=== PATIENT | male | born 1960 | race Caucasian/White ===

== ENCOUNTER → 2017-12-05 | Outpatient (CLI) | payer OTHER ==
[~2017-12-05] MED LIST: CLAR10CA3 PO; DOCU1CAP39 PO; LATA0.002 EACH EYE; LISI10TA PO; METF1000 PO; METF500 PO; SHOWER/TUB CHAIR LG; SIMV10TA PO; SIMV40TA PO; THERM PO; XALA0.00 EACH EYE; Z.0.CPM; [UNRECOGNIZED DRUG - SUPPLY]
[2017-12-05 09:21] LABS: HEMATOCRIT 45.9 % (39.0-51.0); HEMOGLOBIN 15.3 GM/DL (13.0-17.0); MEAN CELL VOLUME 89.7 FL (80.0-100.0); MEAN CORPUSCULAR HEMOGLOBIN 29.9 PG (27.0-34.0); MEAN CORPUSCULAR HGB CONC 33.3 % (32.0-36.0); MEAN PLATELET VOLUME 8.4 FL (7.0-11.0); PLATELET COUNT 187 TH/MM3 (150-450); RED BLOOD COUNT 5.11 MIL/MM3 (4.50-5.90); RED CELL DISTRIBUTION WIDTH 12.9 % (11.6-17.2); WHITE BLOOD COUNT 9.5 TH/MM3 (4.0-11.0)
[2017-12-05 09:31] LABS: BILIRUBIN, URINE NEG (NEG); BLOOD, URINE TRACE (NEG); GLUCOSE,URINE NEG (NEG); KETONE, URINE NEG (NEG); MUCUS URINE FEW /lpf (OCC); NITRITE,URINE NEG (NEG); PH, URINE 5.5 (5.0-8.5); URINE COLOR YELLOW (YELLW/STRAW); URINE LEUKOCYTE ESTERASE NEG (NEG)
[2017-12-05 09:47] LABS: PROTHROMBIN TIME - PATIENT 9.8 SEC (9.8-11.6)
[2017-12-05 09:48] LABS: AST (GOT) 52 U/L (15-37); BICARBONATE 28.4 MEQ/L (21.0-32.0); BLOOD UREA NITROGEN 14 MG/DL (7-18); CALCIUM 9.1 MG/DL (8.5-10.1); CHLORIDE 101 MEQ/L (98-107); CREATININE 0.98 MG/DL (0.60-1.30); GLOMERULAR FILTRATION RATE 79 ML/MIN (>89); GLUCOSE,FASTING 116 MG/DL (74-99); SODIUM (NA) 136 MEQ/L (136-145)
[2017-12-05 09:56] LABS: ALKALINE PHOSPHATASE 110 U/L (45-117); ALT (GPT) 78 U/L (12-78); TOTAL BILIRUBIN ADULT 0.5 MG/DL (0.2-1.0); TOTAL PROTEIN 8.3 GM/DL (6.4-8.2)
--- NOTE | 2017-12-05 15:21 | EKG ---
Date Performed: 12/05/2017 Time Performed: 09:08:46 PTAGE: 57 years EKG: Sinus rhythm Leftward axis Borderline ECG PREVIOUS TRACING : 07/13/2015 10.18 Compared to prior tracing no significant change DOCTOR: Rashard Tobar Interpretating Date/Time 12/05/2017 15:19:45
== END ==
LOC: CPRE 08:36
PROVIDERS: ATTEND Surgery
DX: Z01.810 Encounter for preprocedural cardiovascular examination (principal); Z01.812 Encounter for preprocedural laboratory examination; M25.562 Pain in left knee
CPT/HCPCS: 36415; 80053; 81001; 85027; 85610; 85730; 93005

== ENCOUNTER 2017-12-11 06:05 | Inpatient (IN) | payer OTHER ==
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
[~2017-12-11] VITALS: Ht 177.8 cm; Wt 105.4 kg
[~2017-12-11 06:05] MED LIST changes: -DOCU1CAP39 PO; -METF500 PO; -SHOWER/TUB CHAIR LG; -SIMV40TA PO; -THERM PO; -XALA0.00 EACH EYE; -Z.0.CPM
[2017-12-11] MEDS: CHLORHEXIDINE GLUCONATE 2 % 1 PACK (2 CLOTHS) TOPICAL PRN ×2 (06:35→06:45)
[2017-12-11] MEDS ORDERED: SODIUM CHLORID 0.9% 500 ML IV PRN (06:45)
[2017-12-11] MEDS ORDERED: METOPROLOL TARTRATE 25 MG TAB PO PRN (06:45)
[2017-12-11] MEDS: LACTATED RINGER'S 1000 ML IV PRN ×2 (06:50→07:00)
[2017-12-11] MEDS ORDERED: ceFAZolin INJ 1,000 MG VIAL ONE (06:52)
[2017-12-11] MEDS ORDERED: TOBRAMYCIN 1200 MG VIAL (for ortho/sterile core) ONE (06:53)
[2017-12-11] MEDS ORDERED: EPINEPHrine HCL PF/SF (1:1000) 1 MG/ML AMP I-OCULAR ONE (06:57)
[2017-12-11] MEDS ORDERED: BUPIVACAINE HCL PF 0.5% 30 ML VIAL ONE (06:57)
[2017-12-11] MEDS ORDERED: DEXAMETHASONE SOD PHOS PF 10 MG/ML VIAL ONE (06:57)
[2017-12-11] MEDS ORDERED: SODIUM CHLORIDE 0.9% 20 ML VIAL ONE (06:57)
[2017-12-11] MEDS: POVIDONE IODINE 5% (ANTISEPSIS KIT) 4 APPLICATIONS EACH NARE PRN (07:00)
[2017-12-11] MEDS ORDERED: CHLORHEXIDINE GLUCONATE 4% SOLN 120 ML BTL TOPICAL SCH (07:00)
[2017-12-11] MEDS ORDERED: SIMV40TA PO (07:07)
[2017-12-11] MEDS ORDERED: PROPOFOL 500 MG/50 ML INJ 0 ML ONE (07:12)
[2017-12-11] MEDS ORDERED: VANCOMYCIN HCL 1000 MG VIAL ONE (07:40)
[2017-12-11] MEDS ORDERED: NALOXONE HCL 0.4 MG/ML AMP IV PUSH PRN (07:45)
[2017-12-11] MEDS ORDERED: diphenhydrAMINE HCL 50 MG/ML VIAL IV PUSH PRN (07:45)
[2017-12-11] MEDS ORDERED: ACETAMINOPHEN/HYDROcodone 325 MG/7.5 MG TAB PO PRN ×2 (07:45)
[2017-12-11] MEDS ORDERED: HYDROmorphone HCL PF 2 MG/ML VIAL IV PUSH PRN (07:45)
[2017-12-11] MEDS ORDERED: ONDANSETRON HCL 4 MG/2 ML VIAL IVP PRN (07:45)
[2017-12-11] MEDS ORDERED: LORATADINE 10 MG TAB PO PRN (07:45)
[2017-12-11] MEDS ORDERED: TRANEXAMIC ACID INJ 0 MG in SODIUM CHLORIDE 0.9% INJ 100 ML IV SCH (07:45)
[2017-12-11] MEDS ORDERED: CPMMACHINE (07:50)
[2017-12-11] MEDS: TRANEXAMIC ACID IV SCH ×2 (08:05→08:52)
[2017-12-11] MEDS: SODIUM CHLORIDE 0.9% IV SCH ×2 (08:05→08:52)
[2017-12-11] MEDS: HYDROCHLOROTHIAZIDE 25 MG TAB PO SCH (09:00)
[2017-12-11] MEDS ORDERED: TRANEXAMIC ACID IV SCH (11:00)
[2017-12-11] MEDS ORDERED: SODIUM CHLORIDE 0.9% IV SCH (11:00)
--- NOTE | 2017-12-11 11:11 | MP ---
cc: Jason MOSQUEDA M.D. 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 SURGERY PERFORMED Revision left total knee arthroplasty. SURGEON Dr. Mosqueda. BRAKE HOLDER REBEKA Mercado. ANESTHESIA General intubation and block. PROCEDURE The patient was brought to the operating room, placed on the operating table in supine position. After successful induction of anesthesia the patient's left knee, thigh and leg were prepped and draped in the usual manner. An anteromedial incision was then made through the old incision nine inches in length, carried down through subcutaneous tissue, dissecting the fascia and making a medial parapatellar incision through the deep fascia into the joint. Serosanguineous fluid was removed and sent to the lab for stat. Gram stain, culture and sensitivity. Gram stain revealed a few red cells, no bacteria seen. The knee was then debrided of heavy scarring which was holding the patella laterally. The knee was able to be flexed after this. Prior to release of the scar tissue the patient had range of motion from just about full extension to only 90 degrees of flexion. By the end of the case he had full extension and flexion to 125 degrees. The patella was then inspected by reflecting it laterally and inverting it, and found to be totally covered by adhesions and tissue which was then removed. The patella was found to be loose and easily removed. A new cut was then made for the patella to smooth out the bone. Using the three-hole jig for a size 37 drill holes were made and the trial fit snugly. A lateral retinacular release was also performed to free up some more scar tissue lateral to it and allow the patella to track in its normal trochlear groove tracking. Scar tissue was removed around the femur and the tibia. The femur was found to be totally intact with no loosening. The tibial insert was found to have some wear and removed. The rest of the tibial component was found to be intact with no loosening. A trial 12 was then inserted after removal of all scar tissue from in back of the knee and its sides medial and lateral sides and anterior. A size 12 insert was found to track better than a 10 with full range of motion and no instability. All trials were then removed. The wound was irrigated copiously with antibiotic solution. The tourniquet was deflated, at this point being 61 minutes at 300 mmHg pressure, and meticulous hemostasis achieved. The patella was then cemented with one batch of Palacos cement and the size 12 tibia was then inserted as well and locked into place with a clip. Full range of motion after the cement hardened was noted with absolutely no instability and no catching of any scar tissue any longer. The patella tracked extremely well in the trochlear groove. The wound was irrigated copiously again with antibiotic solution and meticulous hemostasis achieved. The deep fascia was approximated with running #2 Quill. The subcutaneous tissue was approximated using interrupted running 2-0 and 3-0 Monocryl suture. Steri-Strips, sterile dressing and a knee immobilizer were applied. No drain was utilized. The estimated blood loss was 100 cc. Sponge and suture count were correct. The patient tolerated the procedure well and left the operating room in satisfactory condition. REBEKA Mercado was present during the entire procedure to include patient positioning and the procedure. The medical necessity of a nurse practitioner first press operator was indicated in this case due to the surgical complexity of the case itself. During the surgical case the surgical specialist was working the back table while my surgical garment assembler REBEKA was directly assisting me. JMD GLADYS Long/DOROTHY /10:38 AM /10:52 AM
[2017-12-11] MEDS ORDERED: DO NOT ADM ANY ANTICOAGULANT DRUGS PRN (11:12)
[2017-12-11] MEDS ORDERED: ACETAMINOPHEN 1000 MG/100 ML 100 ML IV ONE (11:18)
[2017-12-11] MEDS ORDERED: MIDAZOLAM HCL 2 MG/2 ML VIAL ONE (11:18)
[2017-12-11] MEDS: LACTATED RINGER'S 1000 ML INJ 1,000 ML IV SCH ×2 (11:30→22:39)
--- NOTE | 2017-12-11 11:41 | RADRPT ---
EXAM DATE/TIME: 12/11/2017 09:39 [facility] COMPARISON: KNEE LEFT LTD (1 OR 2VWS), May 13, 2016, 14:36. INDICATIONS : ORIF of the left knee. MEDICAL HISTORY : Unobtainable. SURGICAL HISTORY : Unobtainable. ENCOUNTER: Initial ACUITY: 1 day PAIN SCORE: Non-responsive. LOCATION: Left knee. FINDINGS: Single intraoperative sunrise view was obtained. The patella appears well situated. Examination is ve ry limited. CONCLUSION: 1. Intraoperative sunrise view demonstrate the patella to be well situated over the arthroplasty. Mario Acosta MD on December 11, 2017 at 11:37 Board Certified Radiologist. This report was verified electronically.
--- NOTE | 2017-12-11 11:42 | RADRPT ---
EXAM DATE/TIME: 12/11/2017 11:26 [facility] COMPARISON: KNEE LEFT LTD (1 OR 2VWS), May 13, 2016, 14:36. KNEE LEFT LTD (1 OR 2VWS), December 11, 2017, 9:39. INDICATIONS : Post op left total knee. MEDICAL HISTORY : None. SURGICAL HISTORY : None. ENCOUNTER: Initial ACUITY: 1 day PAIN SCORE: Non-responsive. LOCATION: Left Knee FINDINGS: Total knee prosthesis revision appears well seated. CONCLUSION: Total knee prosthesis revision well-seated Riley Mendiola MD on December 11, 2017 at 11:38 Board Certified Radiologist. This report was verified electronically.
[2017-12-11] MEDS ORDERED: Post-op Orders (for Pharmacy) XX ONE (11:45)
[2017-12-11] MEDS ORDERED: DEXAMETHASONE SOD PHOS 4 MG/ML VIAL IV ONE (12:00)
[2017-12-11] MEDS ORDERED: ePHEDrine/NS 25 MG/5 ML SYRINGE IV ONE (12:00)
[2017-12-11] MEDS ORDERED: ROCURONIUM INJ 50 MG/5 ML SYRINGE IV PUSH ONE (12:00)
[2017-12-11] MEDS ORDERED: LIDOCAINE HCL 1% PF 5 ML SYRINGE OTHER ONE (12:00)
[2017-12-11] MEDS ORDERED: PHENYLEPH/NS 1000 MCG/10 ML SYR IV ONE (12:00)
[2017-12-11] MEDS ORDERED: ONDANSETRON HCL 4 MG/2 ML VIAL IV PUSH ONE (12:00)
[2017-12-11] MEDS ORDERED: NEOSTIGMINE 5 MG/5 ML SYRINGE IV PUSH ONE (12:00)
[2017-12-11] MEDS ORDERED: GLYCOPYRROLATE 1 MG/5 ML SYRINGE IV PUSH ONE (12:00)
[2017-12-11] MEDS ORDERED: ceFAZolin INJ 1,000 MG VIAL IV ONE (12:00)
[2017-12-11] MEDS ORDERED: LACTATED RINGER'S 1000 ML INJ 1,000 ML IV ONE (12:00)
[2017-12-11] MEDS ORDERED: PROPOFOL 200 MG/20 ML AMP IV ONE (12:00)
--- NOTE | 2017-12-11 15:45 | HHI.PR ---
Immediate Post Op Note Procedure Date: Dec 11, 2017 Pre Op Diagnosis: Failed left total knee arthroplasty Post Op Diagnosis: Failed left total knee arthroplasty Surgeon: Doris Mosqueda MD Sales Producer(s): Jason Mosqueda MD Procedure: Revision of Left Total Knee Arthroplasty Complications: none Specimen(s) removed: Left knee Fluid Estimated blood loss: 100 cc Anesthesia: General Drains: None IVF Urinary Output (mLs): 0 (no sargent) Tourniquet time (min at mmHg) 61 mins at 300 mm Hg Patient to: PACU Patient Condition: Good Implant/Devices: SEE IMPLANT LOG (if applicable) Date/Time of Procedure: SEE SURGICAL CARE RECORD Symone Arzate Dec 11, 2017 15:45
[2017-12-11] MEDS: ACETAMINOPHEN 325 MG TAB PO PRN (17:35)
[2017-12-11] MEDS: metFORMIN HCL 500 MG TAB PO SCH (17:35)
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
[2017-12-11 20:00] VITALS: BP 122/59; PULSE 99; RESP 16; TEMP 97.8; O2SAT 93
[2017-12-11] MEDS ORDERED: TEMAZEPAM 15 MG CAP PO PRN (21:00)
[2017-12-11] MEDS ORDERED: NON-FORMULARY DRUG (Lisinopril-Hctz 1 TAB) PO SCH (21:00)
[2017-12-11] MEDS: LATANOPROST 0.005% OPHT SOLN 2.5 ML BTL EACH EYE SCH (22:33)
[2017-12-11] MEDS: PRAVASTATIN SOD 80 MG TAB PO SCH (22:33)
[2017-12-12] VITALS (8 sets, daily range): BP systolic 96–126; BP diastolic 55–65; PULSE 81–96; RESP 15–20; TEMP 96.9–98.7; O2SAT 92–97
[2017-12-12] MEDS: APIXABAN 2.5 MG TABLET PO SCH ×2 (08:55→21:05)
[2017-12-12] MEDS: HYDROCHLOROTHIAZIDE 25 MG TAB PO SCH ×2 (08:56→08:59)
[2017-12-12] MEDS: LISINOPRIL 10 MG TAB PO SCH ×2 (08:56→09:00)
[2017-12-12] MEDS: ACETAMINOPHEN 325 MG TAB PO PRN (08:57)
[2017-12-12] MEDS: metFORMIN HCL 500 MG TAB PO SCH ×2 (08:57→17:08)
[2017-12-12 09:51] LABS: HEMATOCRIT 36.1 % (39.0-51.0); HEMOGLOBIN 12.1 GM/DL (13.0-17.0)
[2017-12-12 10:20] LABS: CHOLESTEROL 125 MG/DL (120-200); TRIGLYCERIDES 115 MG/DL (42-150)
[2017-12-12 10:24] LABS: CHOLESTEROL/ HDL RATIO 2.72 RATIO; HDL CHOLESTEROL 45.8 MG/DL (40.0-60.0); LDL CHOLESTEROL 56 MG/DL (0-99)
--- NOTE | 2017-12-12 11:10 | PD.ORT.PN ---
Subjective Subjective Remarks Pt somewhat painful today. Objective Vitals Vital Signs Date Time Temp Pulse Resp B/P (MAP) Pulse Ox O2 Delivery O2 Flow Rate FiO2 12/12/17 08:00 96.9 82 20 122/56 (78) 95 12/12/17 04:00 97.8 81 15 124/65 (84) 95 12/12/17 00:00 98.7 96 15 109/56 (73) 92 12/11/17 20:00 97.8 99 16 122/59 (80) 93 12/11/17 16:50 88 18 123/82 (96) 96 Nasal Cannula 2 12/11/17 16:00 91 18 112/59 (76) 95 Nasal Cannula 2 12/11/17 15:00 85 18 118/57 (77) 96 Nasal Cannula 2 12/11/17 14:00 93 18 115/57 (76) 97 Nasal Cannula 2 12/11/17 13:00 89 18 123/56 (78) 94 Nasal Cannula 2 12/11/17 12:00 86 18 123/58 (79) 94 Nasal Cannula 4 12/11/17 11:45 86 18 122/60 (80) 92 Nasal Cannula 4 12/11/17 11:30 90 18 117/59 (78) 92 Nasal Cannula 4 12/11/17 11:11 98.6 93 18 138/61 (86) 90 Nasal Cannula 4 I/O 12/11/17 12/11/17 12/11/17 12/12/17 12/12/17 12/12/17 07:00 15:00 23:00 07:00 15:00 23:00 Intake Total 1500 ml 300 ml 1200 ml Output Total 100 ml 900 ml Balance 1400 ml 300 ml 300 ml Intake Oral 200 ml 1200 ml IV Total 100 ml Other 1500 ml Output Urine Total 900 ml Estimated Blood Loss 100 ml # Voids 1 Result Diagram: 12/12/17 0916 Imaging Last Impressions Knee X-Ray 12/11/17 0744 Signed Impressions: Service Date/Time: Monday, December 11, 2017 11:26 - CONCLUSION: Total knee prosthesis revision well-seated Riley Mendiola MD Objective Remarks Sitting up in chair today. NV intact. No calf tenderness. Assessment & Plan Ortho Post Op Day #: 1 Problem List: Assessment and Plan Cont PT and daily wound care. Ultram for pain control. Rehab soon. Jason Mosqueda MD Dec 12, 2017 11:10
[2017-12-12 12:01] LABS: HEPATITIS B CORE AB IGM NEGATIVE (NEGATIVE); HEPATITIS B SURFACE ANTIGEN NEGATIVE (NEGATIVE); HEPATITIS C AB IgG NEGATIVE (NEGATIVE)
[2017-12-12 12:30] LABS: HEPATITIS A AB IGM NEGATIVE (NEGATIVE)
--- NOTE | 2017-12-12 16:23 | HHI.PR ---
Subjective Remarks patient c/o pain, controlled with medications. afebrile. Objective Vitals Vital Signs Date Time Temp Pulse Resp B/P (MAP) Pulse Ox O2 Delivery O2 Flow Rate FiO2 12/12/17 12:00 97.0 84 20 125/65 (85) 94 12/12/17 08:00 96.9 82 20 122/56 (78) 95 12/12/17 04:00 97.8 81 15 124/65 (84) 95 12/12/17 00:00 98.7 96 15 109/56 (73) 92 12/11/17 20:00 97.8 99 16 122/59 (80) 93 12/11/17 16:50 88 18 123/82 (96) 96 Nasal Cannula 2 I/O 12/11/17 12/11/17 12/11/17 12/12/17 12/12/17 12/12/17 06:59 14:59 22:59 06:59 14:59 22:59 Intake Total 1500 ml 300 ml 1200 ml Output Total 100 ml 900 ml Balance 1400 ml 300 ml 300 ml Intake Oral 200 ml 1200 ml IV Total 100 ml Other 1500 ml Output Urine Total 900 ml Estimated Blood Loss 100 ml # Voids 1 Result Diagram: 12/12/17 0916 Imaging Last Impressions Knee X-Ray 12/11/17 0744 Signed Impressions: Service Date/Time: Monday, December 11, 2017 11:26 - CONCLUSION: Total knee prosthesis revision well-seated Riley Mendiola MD Objective Remarks GENERAL: This is a well-nourished, well-developed patient, in no apparent distress. SKIN: No rashes, ecchymoses or lesions. Cool and dry. HEAD: Atraumatic. Normocephalic. No temporal or scalp tenderness. EYES: Pupils equal round and reactive. Extraocular motions intact. No scleral icterus. No injection or drainage. ENT: Nose without bleeding, purulent drainage or septal hematoma. Throat without erythema, tonsillar hypertrophy or exudate. Uvula midline. Airway patent. NECK: Trachea midline. No JVD or lymphadenopathy. Supple, nontender, no meningeal signs. CARDIOVASCULAR: Regular rate and rhythm without murmurs, gallops, or rubs. RESPIRATORY: Clear to auscultation. Breath sounds equal bilaterally. No wheezes , rales, or rhonchi. GASTROINTESTINAL: Abdomen soft, non-tender, nondistended. No hepato-splenomegaly , or palpable masses. No guarding. MUSCULOSKELETAL: Extremities without clubbing, cyanosis, or edema. No joint tenderness, effusion, or edema noted. No calf tenderness. Negative Homans sign bilaterally. Left knee is moderately swollen and wrapped with an Harvey bandage. NEUROLOGICAL: Awake and alert. Cranial nerves II through XII intact. Motor and sensory grossly within normal limits. Five out of 5 muscle strength in all muscle groups. Normal speech. Medications and IVs Current Medications Medications (Trade) Dose Ordered Sig/Dong Route Start Time Stop Time Status Last Admin (Lopressor) 25 mg IT SYSTEMS ANALYST PRN PO 12/11/17 06:45 12/14/17 06:44 (Betadine 5% Antisepsis Kit) 1 applic IT SYSTEMS ANALYST PRN EACH NARE 12/11/17 06:45 12/14/17 06:44 12/11/17 07:00 (Chlorhexidine 2% Cloth) 3 pack IT SYSTEMS ANALYST PRN TOPICAL 12/11/17 06:45 12/14/17 06:44 12/11/17 06:35 (Hibiclens 4% Top Soln) 1 applic ONCE TOPICAL 12/11/17 07:00 12/14/17 06:59 12/11/17 07:15 (Xalatan 0.005% Opth Soln) 1 drop HS EACH EYE 12/11/17 21:00 12/11/17 22:33 (Claritin) 10 mg DAILY PRN PO 12/11/17 07:45 (Glucophage) 1,000 mg BIDPC PO 12/11/17 09:00 12/12/17 08:57 (Pravachol) 80 mg HS PO 12/11/17 21:00 12/11/17 22:33 Lactated Ringer's 1,000 ml @ 80 mls/hr [id number] IV 12/11/17 07:44 12/11/17 22:39 (Dilaudid Pf Inj) 1 mg Q3H PRN IV PUSH 12/11/17 07:45 (Tylenol) 650 mg Q6H PRN PO 12/11/17 07:45 12/12/17 08:57 (Theragran M Tab) 1 tab BID PO 12/12/17 21:00 02/10/18 20:59 (Zofran Inj) 4 mg Q6H PRN IVP 12/11/17 07:45 12/11/17 17:33 (Colace) 100 mg BID PO 12/12/17 21:00 (Restoril) 15 mg HS PRN PO 12/11/17 21:00 (Bacitracin Oint Packet) 0.9 gm UNSCH X1 PRN TOP 12/13/17 10:15 12/15/17 10:14 (Narcan Inj) 0.4 mg UNSCH PRN IV PUSH 12/11/17 07:45 (Benadryl Inj) 25 mg Q6H PRN IV PUSH 12/11/17 07:45 (Eliquis) 2.5 mg BID PO 12/12/17 08:00 12/12/17 08:55 (Prinivil) 10 mg DAILY PO 12/11/17 09:00 12/12/17 08:56 (Hydrodiuril) 12.5 mg DAILY PO 12/11/17 09:00 12/11/17 09:00 (Ultram) 50 mg Q4H PRN PO 12/12/17 14:00 A/P Problem List: (1) Status post revision of total replacement of left knee ICD Code: Z96.652 - Presence of left artificial knee joint Plan: Management as per orthopedic surgery. Pain control as per orthopedic surgery. (2) Hypertension ICD Code: I10 - Hypertension Status: Chronic Plan: Blood pressure seems to be stable. Continue home antihypertensive medications. The patient is currently on lisinopril HCTZ. Continue to monitor vital signs. (3) DM (diabetes mellitus) ICD Code: E11.9 - Type 2 diabetes mellitus without complications Status: Chronic Plan: Continue metformin. Check hemoglobin A1c if not previously done. 12/12 hemoglobin a1c pending. (4) Transaminitis ICD Code: R74.0 - Nonspecific elevation of levels of transaminase and lactic acid dehydrogenase [LDH] Status: Chronic Plan: Upon review of previous lab results. Transaminitis is a chronic problem and AST and ALP are slightly improved. However there is no previous tests for hepatitis, so I will order hepatitis profile. Patient states that he has had imaging at the [facility]. 12/12 hepatitis profile pending. (5) Hyperlipidemia ICD Code: E78.5 - Hyperlipidemia, unspecified Plan: Continue statin. Check fasting lipid profile. 12/12 fasting lipid profile shows stable cholesterol. Patient with a total cholesterol 125 and LDL cholesterol 56. Assessment and Plan DVT prophylaxis: SCDs, on apixaban. Discharge Planning Discharge as per primary team. Problem Qualifiers (1) Hypertension: Qualified Codes: I10 - Essential (primary) hypertension (2) DM (diabetes mellitus): Qualified Codes: E11.9 - Type 2 diabetes mellitus without complications (3) Hyperlipidemia: Qualified Codes: E78.5 - Hyperlipidemia, unspecified Les Chavez MD Dec 12, 2017 16:23
[2017-12-12 18:11] LABS: HEMOGLOBIN A1C 6.4 % (4.3-6.0)
[2017-12-12] MEDS: DOCUSATE SODIUM 100 MG CAP PO SCH (21:04)
[2017-12-12] MEDS: PRAVASTATIN SOD 80 MG TAB PO SCH (21:04)
[2017-12-12] MEDS: traMADol HCL 50 MG TAB PO PRN (21:04)
[2017-12-12] MEDS: MULTIVITAMINS/MINERALS THERAPEUTIC TAB PO SCH (21:04)
[2017-12-12] MEDS: LACTATED RINGER'S 1000 ML INJ 1,000 ML IV SCH (21:05)
[2017-12-12] MEDS: LATANOPROST 0.005% OPHT SOLN 2.5 ML BTL EACH EYE SCH (21:05)
[2017-12-13] VITALS (7 sets, daily range): BP systolic 95–139; BP diastolic 52–73; PULSE 76–102; RESP 16–18; TEMP 96.4–98.9; O2SAT 94–98
[2017-12-13] MEDS: traMADol HCL 50 MG TAB PO PRN ×3 (07:50→21:25)
--- NOTE | 2017-12-13 07:54 | PD.ORT.PN ---
Subjective Subjective Remarks Pt less painful today. Objective Vitals Vital Signs Date Time Temp Pulse Resp B/P (MAP) Pulse Ox O2 Delivery O2 Flow Rate FiO2 12/13/17 04:30 98.9 76 16 95/52 (66) 94 12/12/17 23:35 98.3 86 16 96/55 (69) 94 12/12/17 20:00 98.7 93 18 126/60 (82) 97 12/12/17 18:00 94 Nasal Cannula 2.00 12/12/17 16:00 97.7 86 20 124/59 (80) 96 12/12/17 12:00 97.0 84 20 125/65 (85) 94 12/12/17 08:00 96.9 82 20 122/56 (78) 95 I/O 12/12/17 12/12/17 12/12/17 12/13/17 12/13/17 12/13/17 07:00 15:00 23:00 07:00 15:00 23:00 Intake Total 1200 ml 600 ml 480 ml 120 ml Output Total 900 ml 350 ml 200 ml Balance 300 ml 600 ml 130 ml -80 ml Intake Oral 1200 ml 600 ml 480 ml 120 ml Output Urine Total 900 ml 350 ml 200 ml # Voids 5 # Bowel Movements 0 0 Result Diagram: 12/12/17 0916 Imaging Last Impressions Knee X-Ray 12/11/17 0744 Signed Impressions: Service Date/Time: Monday, December 11, 2017 11:26 - CONCLUSION: Total knee prosthesis revision well-seated Riley Mendiola MD Objective Remarks In bed today. NV intact. No calf tenderness. Assessment & Plan Ortho Post Op Day #: 2 Problem List: Assessment and Plan Cont PT and daily wound care. Ultram for pain control. Rehab soon. Jason Mosqueda MD Dec 13, 2017 07:54
--- NOTE | 2017-12-13 08:10 | HHI.DS ---
Discharge Summary Admission Date Dec 11, 2017 at 06:05 Discharge Date: Dec 13, 2017 Admitting Diagnosis Failed left total knee arthroplasty Diagnosis: (1) Status post revision of total replacement of left knee Diagnosis: Principal ICD Codes: Z96.652 - Presence of left artificial knee joint Brief History This is a 57 year old male patient CBC/BMP: 12/12/17 0916 Significant Findings Laboratory Tests Test 12/12/17 09:16 Hemoglobin 12.1 GM/DL (13.0-17.0) Hematocrit 36.1 % (39.0-51.0) Hemoglobin A1c 6.4 % (4.3-6.0) PE at Discharge In bed today. NV intact. No calf tenderness. Hospital Course Patient underwent a revision of his left total knee arthroplasty on day of admission. He received a course of prophylactic IV antibiotics and within 23 hours started anticoagulation therapy. He continued to improve remaining afebrile vital signs stable and was discharged to rehabilitation center on second postoperative day in good condition for continuation of care. Pt Condition on Discharge: Good Discharge Disposition: Rehab Inpatient Discharge Instructions Diet Instructions: Diabetic Diet Activities You Can Perform: Full Weight Bearing, Shower Only-No Bath Activities to Avoid: Bathing, Driving Jason Mosqueda MD Dec 13, 2017 08:10
[2017-12-13] MEDS: metFORMIN HCL 500 MG TAB PO SCH ×2 (09:04→17:36)
[2017-12-13] MEDS: APIXABAN 2.5 MG TABLET PO SCH ×2 (09:04→21:25)
[2017-12-13] MEDS: DOCUSATE SODIUM 100 MG CAP PO SCH ×2 (09:04→21:25)
[2017-12-13] MEDS: MULTIVITAMINS/MINERALS THERAPEUTIC TAB PO SCH ×2 (09:04→21:25)
[2017-12-13] MEDS: HYDROCHLOROTHIAZIDE 25 MG TAB PO SCH (09:05)
[2017-12-13] MEDS: LISINOPRIL 10 MG TAB PO SCH (09:05)
[2017-12-13] MEDS: LACTATED RINGER'S 1000 ML INJ 1,000 ML IV SCH ×2 (09:06→22:10)
[2017-12-13] MEDS ORDERED: BACITRACIN OINT 0.9 GM PKT TOP PRN (10:15)
[2017-12-13 11:57] LABS: HEMOGLOBIN 12.4 GM/DL (13.0-17.0)
--- NOTE | 2017-12-13 16:32 | HHI.PR ---
Subjective Remarks Deferred entry - patient seen at 10:30 am. pain is controlled, denies fevers or chills. Objective Vitals Vital Signs Date Time Temp Pulse Resp B/P (MAP) Pulse Ox O2 Delivery O2 Flow Rate FiO2 12/13/17 15:40 17 12/13/17 12:00 98.2 93 18 116/62 (80) 97 12/13/17 10:45 95 Nasal Cannula 2.00 12/13/17 08:00 98.7 89 18 131/73 (92) 95 12/13/17 04:30 98.9 76 16 95/52 (66) 94 12/12/17 23:35 98.3 86 16 96/55 (69) 94 12/12/17 20:00 98.7 93 18 126/60 (82) 97 12/12/17 18:00 94 Nasal Cannula 2.00 I/O 12/12/17 12/12/17 12/12/17 12/13/17 12/13/17 12/13/17 06:59 14:59 22:59 06:59 14:59 22:59 Intake Total 1200 ml 600 ml 480 ml 120 ml Output Total 900 ml 350 ml 200 ml Balance 300 ml 600 ml 130 ml -80 ml Intake Oral 1200 ml 600 ml 480 ml 120 ml Output Urine Total 900 ml 350 ml 200 ml # Voids 5 # Bowel Movements 0 0 Result Diagram: 12/13/17 1133 Imaging Last Impressions Knee X-Ray 12/11/17 0744 Signed Impressions: Service Date/Time: Monday, December 11, 2017 11:26 - CONCLUSION: Total knee prosthesis revision well-seated Riley Mendiola MD Objective Remarks GENERAL: This is a well-nourished, well-developed patient, in no apparent distress. SKIN: No rashes, ecchymoses or lesions. Cool and dry. HEAD: Atraumatic. Normocephalic. No temporal or scalp tenderness. EYES: Pupils equal round and reactive. Extraocular motions intact. No scleral icterus. No injection or drainage. ENT: Nose without bleeding, purulent drainage or septal hematoma. Throat without erythema, tonsillar hypertrophy or exudate. Uvula midline. Airway patent. NECK: Trachea midline. No JVD or lymphadenopathy. Supple, nontender, no meningeal signs. CARDIOVASCULAR: Regular rate and rhythm without murmurs, gallops, or rubs. RESPIRATORY: Clear to auscultation. Breath sounds equal bilaterally. No wheezes , rales, or rhonchi. GASTROINTESTINAL: Abdomen soft, non-tender, nondistended. No hepato-splenomegaly , or palpable masses. No guarding. MUSCULOSKELETAL: Extremities without clubbing, cyanosis, or edema. No joint tenderness, effusion, or edema noted. No calf tenderness. Negative Homans sign bilaterally. Left knee is moderately swollen and wrapped with an Harvey bandage. NEUROLOGICAL: Awake and alert. Cranial nerves II through XII intact. Motor and sensory grossly within normal limits. Five out of 5 muscle strength in all muscle groups. Normal speech. Medications and IVs Current Medications Medications (Trade) Dose Ordered Sig/Dong Route Start Time Stop Time Status Last Admin (Lopressor) 25 mg REEL WINDER PRN PO 12/11/17 06:45 12/14/17 06:44 (Betadine 5% Antisepsis Kit) 1 applic REEL WINDER PRN EACH NARE 12/11/17 06:45 12/14/17 06:44 12/11/17 07:00 (Chlorhexidine 2% Cloth) 3 pack REEL WINDER PRN TOPICAL 12/11/17 06:45 12/14/17 06:44 12/11/17 06:35 (Hibiclens 4% Top Soln) 1 applic ONCE TOPICAL 12/11/17 07:00 12/14/17 06:59 12/11/17 07:15 (Xalatan 0.005% Opth Soln) 1 drop HS EACH EYE 12/11/17 21:00 12/12/17 21:05 (Claritin) 10 mg DAILY PRN PO 12/11/17 07:45 (Glucophage) 1,000 mg BIDPC PO 12/11/17 09:00 12/13/17 09:04 (Pravachol) 80 mg HS PO 12/11/17 21:00 12/12/17 21:04 Lactated Ringer's 1,000 ml @ 80 mls/hr [id number] IV 12/11/17 07:44 12/11/17 22:39 (Dilaudid Pf Inj) 1 mg Q3H PRN IV PUSH 12/11/17 07:45 (Tylenol) 650 mg Q6H PRN PO 12/11/17 07:45 12/12/17 08:57 (Theragran M Tab) 1 tab BID PO 12/12/17 21:00 02/10/18 20:59 12/13/17 09:04 (Zofran Inj) 4 mg Q6H PRN IVP 12/11/17 07:45 12/11/17 17:33 (Colace) 100 mg BID PO 12/12/17 21:00 12/13/17 09:04 (Restoril) 15 mg HS PRN PO 12/11/17 21:00 (Bacitracin Oint Packet) 0.9 gm UNSCH X1 PRN TOP 12/13/17 10:15 12/15/17 10:14 (Narcan Inj) 0.4 mg UNSCH PRN IV PUSH 12/11/17 07:45 (Benadryl Inj) 25 mg Q6H PRN IV PUSH 12/11/17 07:45 (Eliquis) 2.5 mg BID PO 12/12/17 08:00 12/13/17 09:04 (Prinivil) 10 mg DAILY PO 12/11/17 09:00 12/13/17 09:05 (Hydrodiuril) 12.5 mg DAILY PO 12/11/17 09:00 12/13/17 09:05 (Ultram) 50 mg Q4H PRN PO 12/12/17 14:00 12/13/17 14:31 A/P Problem List: (1) Status post revision of total replacement of left knee ICD Code: Z96.652 - Presence of left artificial knee joint Plan: Management as per orthopedic surgery. Pain control as per orthopedic surgery. (2) Hypertension ICD Code: I10 - Hypertension Status: Chronic Plan: Blood pressure seems to be stable. Continue home antihypertensive medications. The patient is currently on lisinopril HCTZ. Continue to monitor vital signs. (3) DM (diabetes mellitus) ICD Code: E11.9 - Type 2 diabetes mellitus without complications Status: Chronic Plan: Continue metformin. Check hemoglobin A1c if not previously done. 12/12 hemoglobin a1c 6.4. (4) Transaminitis ICD Code: R74.0 - Nonspecific elevation of levels of transaminase and lactic acid dehydrogenase [LDH] Status: Chronic Plan: Upon review of previous lab results. Transaminitis is a chronic problem and AST and ALP are slightly improved. However there is no previous tests for hepatitis, so I will order hepatitis profile. Patient states that he has had imaging at the [place]. 12/13 hepatitis profile negative. (5) Hyperlipidemia ICD Code: E78.5 - Hyperlipidemia, unspecified Plan: Continue statin. Check fasting lipid profile. 12/12 fasting lipid profile shows stable cholesterol. Patient with a total cholesterol 125 and LDL cholesterol 56. Assessment and Plan DVT prophylaxis: SCDs, on apixaban. Discharge Planning Discharge as per primary team. Problem Qualifiers (1) Hypertension: Qualified Codes: I10 - Essential (primary) hypertension (2) DM (diabetes mellitus): Qualified Codes: E11.9 - Type 2 diabetes mellitus without complications (3) Hyperlipidemia: Qualified Codes: E78.5 - Hyperlipidemia, unspecified Les Chavez MD Dec 13, 2017 16:32
[2017-12-13] MEDS: LATANOPROST 0.005% OPHT SOLN 2.5 ML BTL EACH EYE SCH (21:25)
[2017-12-13] MEDS: PRAVASTATIN SOD 80 MG TAB PO SCH (21:25)
[2017-12-14 00:15] VITALS: BP 118/61; PULSE 85; RESP 16; TEMP 98.9; O2SAT 93
[2017-12-14 08:00] VITALS: BP 131/68; PULSE 76; RESP 18; TEMP 96.9; O2SAT 93
[2017-12-14] MEDS: metFORMIN HCL 500 MG TAB PO SCH ×2 (09:10→17:32)
[2017-12-14] MEDS: LISINOPRIL 10 MG TAB PO SCH (09:10)
[2017-12-14] MEDS: DOCUSATE SODIUM 100 MG CAP PO SCH ×2 (09:10→21:00)
[2017-12-14] MEDS: HYDROCHLOROTHIAZIDE 25 MG TAB PO SCH (09:10)
[2017-12-14] MEDS: MULTIVITAMINS/MINERALS THERAPEUTIC TAB PO SCH ×2 (09:10→21:37)
[2017-12-14] MEDS: APIXABAN 2.5 MG TABLET PO SCH ×2 (09:11→21:37)
[2017-12-14] MEDS: traMADol HCL 50 MG TAB PO PRN ×4 (09:11→21:38)
[2017-12-14] MEDS: LACTATED RINGER'S 1000 ML INJ 1,000 ML IV SCH ×2 (10:44→19:47)
--- NOTE | 2017-12-14 11:27 | PD.ORT.PN ---
Subjective Subjective Remarks Pt less painful today. Objective Vitals Vital Signs Date Time Temp Pulse Resp B/P (MAP) Pulse Ox O2 Delivery O2 Flow Rate FiO2 12/14/17 10:11 18 12/14/17 08:00 96.9 76 18 131/68 (89) 93 12/14/17 00:15 98.9 85 16 118/61 (80) 93 12/13/17 23:41 Room Air 12/13/17 21:02 94 21 12/13/17 20:45 98.8 90 17 130/70 (90) 97 12/13/17 16:00 97.7 85 18 124/63 (83) 95 12/13/17 12:00 98.2 93 18 116/62 (80) 97 I/O 12/13/17 12/13/17 12/13/17 12/14/17 12/14/17 12/14/17 07:00 15:00 23:00 07:00 15:00 23:00 Intake Total 120 ml 720 ml 720 ml 240 ml Output Total 200 ml 1400 ml Balance -80 ml 720 ml -680 ml 240 ml Intake Oral 120 ml 720 ml 720 ml 240 ml Output Urine Total 200 ml 1400 ml # Voids 2 1 # Bowel Movements 0 0 0 Result Diagram: 12/13/17 1133 Imaging Last Impressions Knee X-Ray 12/11/17 0744 Signed Impressions: Service Date/Time: Monday, December 11, 2017 11:26 - CONCLUSION: Total knee prosthesis revision well-seated Riley Mendiola MD Objective Remarks In bed today. NV intact. No calf tenderness. Wound clean and dry. Assessment & Plan Ortho Post Op Day #: 3 Problem List: (1) Status post revision of total replacement of left knee ICD Codes: Z96.652 - Presence of left artificial knee joint Assessment and Plan Cont PT and daily wound care. Ultram for pain control. Rehab soon. Jason Mosqueda MD Dec 14, 2017 11:27
--- NOTE | 2017-12-14 11:33 | HHI.FF ---
Face to Face Verification Diagnosis: (1) Status post revision of total replacement of left knee Physical Therapy Gait training Knee: Total knee, Protocol: Left, Full weight bearing Canvas Knee Splint: When in bed & 2 pillows btw thighs Nursing Dressing Changes: Daily dressing change, 4x4s, Gauze, Paper tape I have seen patient Joshua Francisco on 12/14/17. My clinical findings support the need for the requested home health care services because: Limited ability to care for self High risk of falls I certify that my clinical findings support that this patient is homebound because: Unsteady gait/balance Jason Mosqueda MD Dec 14, 2017 11:33
[2017-12-14] MEDS ORDERED: SENNOSIDES 8.6 MG TAB PO PRN ×2 (11:45→14:15)
[2017-12-14] MEDS ORDERED: LACTULOSE SYRUP 20 GM/30 ML CUP PO PRN (11:45)
[2017-12-14] MEDS ORDERED: MAGNESIUM HYDROXIDE SUSP 30 ML CUP PO PRN (11:45)
[2017-12-14] MEDS ORDERED: NALOXONE HCL 0.4 MG/ML AMP IV PUSH PRN (11:45)
[2017-12-14] MEDS ORDERED: BISACODYL 10 MG SUPP RECTAL PRN ×2 (11:45→14:15)
[2017-12-14 12:00] VITALS: BP 118/72; PULSE 92; RESP 18; TEMP 97.1; O2SAT 95
--- NOTE | 2017-12-14 13:25 | HHI.PR ---
Subjective Remarks Follow-up for revision of total replacement of left knee. Patient is currently doing well. Pain is well controlled. No bowel movement yet. Objective Vitals Vital Signs Date Time Temp Pulse Resp B/P (MAP) Pulse Ox O2 Delivery O2 Flow Rate FiO2 12/14/17 10:11 18 12/14/17 08:00 96.9 76 18 131/68 (89) 93 12/14/17 00:15 98.9 85 16 118/61 (80) 93 12/13/17 23:41 Room Air 12/13/17 21:02 94 21 12/13/17 20:45 98.8 90 17 130/70 (90) 97 12/13/17 16:00 97.7 85 18 124/63 (83) 95 I/O 12/13/17 12/13/17 12/13/17 12/14/17 12/14/17 12/14/17 07:00 15:00 23:00 07:00 15:00 23:00 Intake Total 120 ml 720 ml 720 ml 240 ml Output Total 200 ml 1400 ml Balance -80 ml 720 ml -680 ml 240 ml Intake Oral 120 ml 720 ml 720 ml 240 ml Output Urine Total 200 ml 1400 ml # Voids 2 1 # Bowel Movements 0 0 0 Result Diagram: 12/13/17 1133 Imaging Last Impressions Knee X-Ray 12/11/17 0744 Signed Impressions: Service Date/Time: Monday, December 11, 2017 11:26 - CONCLUSION: Total knee prosthesis revision well-seated Riley Mendiola MD Objective Remarks GENERAL: Alert, oriented 3, NAD. SKIN: Warm and dry. HEAD: Normocephalic. EYES: No scleral icterus. No injection or drainage. NECK: Supple, trachea midline. No JVD or lymphadenopathy. CARDIOVASCULAR: Regular rate and rhythm without murmurs, gallops, or rubs. RESPIRATORY: Breath sounds equal bilaterally. No accessory muscle use. GASTROINTESTINAL: Abdomen soft, non-tender, nondistended. MUSCULOSKELETAL: No cyanosis, or edema. Status post revision of left total knee BACK: Nontender without obvious deformity. No CVA tenderness. Procedures 12/11/2017 Revision left total knee arthroplasty. A/P Problem List: (1) Status post revision of total replacement of left knee ICD Code: Z96.652 - Presence of left artificial knee joint (2) Hypertension ICD Code: I10 - Hypertension Status: Chronic (3) DM (diabetes mellitus) ICD Code: E11.9 - Type 2 diabetes mellitus without complications Status: Chronic (4) Transaminitis ICD Code: R74.0 - Nonspecific elevation of levels of transaminase and lactic acid dehydrogenase [LDH] Status: Chronic (5) Hyperlipidemia ICD Code: E78.5 - Hyperlipidemia, unspecified Assessment and Plan Mr. Francisco is a 57-year-old male who was admitted to the hospital for revision of left total knee arthroplasty due to failure following an accident. - Left total knee arthroplasty failure - Status post revision. - Continue apixaban 2.5 mg twice a day - Continue Dilaudid, acetaminophen, tramadol when necessary for pain management - Will order various when necessary bowel regimen. - Diabetes mellitus - continue metformin 1000 mg twice a day after meals. HbA1C 6.4. - Hypertension - Hyperlipidemia - Continue lisinopril 10 mg daily and hydrochlorothiazide 12.5 mg daily. - Continue pravastatin 80 mg daily at bedtime Full code. Apixaban. Discussed with case management. Patient is waiting to go to inpatient rehabilitation pending insurance approval. Problem Qualifiers (1) Hypertension: Qualified Codes: I10 - Essential (primary) hypertension (2) DM (diabetes mellitus): Qualified Codes: E11.9 - Type 2 diabetes mellitus without complications (3) Hyperlipidemia: Qualified Codes: E78.5 - Hyperlipidemia, unspecified Duglas Aguirre DO Dec 14, 2017 1:25 pm
[2017-12-14] MEDS ORDERED: BISACODYL EC 5 MG TABEC PO ONE (14:15)
[2017-12-14 16:00] VITALS: BP 124/72; PULSE 97; RESP 18; TEMP 97.6; O2SAT 97
[2017-12-14 20:30] VITALS: BP 125/70; PULSE 90; RESP 17; TEMP 98.7; O2SAT 97
[2017-12-14] MEDS: PRAVASTATIN SOD 80 MG TAB PO SCH (21:37)
[2017-12-14] MEDS: LATANOPROST 0.005% OPHT SOLN 2.5 ML BTL EACH EYE SCH (21:38)
[2017-12-14 22:36] VITALS: O2SAT 93
[2017-12-15 00:40] VITALS: BP 118/57; PULSE 75; RESP 16; TEMP 98.7; O2SAT 95
[2017-12-15] MEDS: metFORMIN HCL 500 MG TAB PO SCH (08:41)
[2017-12-15] MEDS: MULTIVITAMINS/MINERALS THERAPEUTIC TAB PO SCH (08:42)
[2017-12-15] MEDS: APIXABAN 2.5 MG TABLET PO SCH (08:42)
[2017-12-15] MEDS: traMADol HCL 50 MG TAB PO PRN (08:42)
[2017-12-15] MEDS: HYDROCHLOROTHIAZIDE 25 MG TAB PO SCH (08:42)
[2017-12-15] MEDS: LISINOPRIL 10 MG TAB PO SCH (08:43)
[2017-12-15 08:45] VITALS: BP 117/75; PULSE 75; RESP 18; TEMP 97.3; O2SAT 93
[2017-12-15] MEDS: DOCUSATE SODIUM 100 MG CAP PO SCH (08:48)
[2017-12-15 09:42] VITALS: RESP 18
[2017-12-15] MEDS: LACTATED RINGER'S 1000 ML INJ 1,000 ML IV SCH (11:44)
--- NOTE | 2017-12-15 13:09 | PD.ORT.PN ---
Subjective Subjective Remarks Pt less painful today. Awaiting workers comp for discharge directions. Objective Vitals Vital Signs Date Time Temp Pulse Resp B/P (MAP) Pulse Ox O2 Delivery O2 Flow Rate FiO2 12/15/17 09:42 18 12/15/17 08:45 97.3 75 18 117/75 (89) 93 12/15/17 00:40 98.7 75 16 118/57 (77) 95 12/14/17 22:53 Room Air 12/14/17 22:36 93 21 12/14/17 20:30 98.7 90 17 125/70 (88) 97 12/14/17 16:00 97.6 97 18 124/72 (89) 97 I/O 12/14/17 12/14/17 12/14/17 12/15/17 12/15/17 12/15/17 07:00 15:00 23:00 07:00 15:00 23:00 Intake Total 960 ml 480 ml 480 ml Output Total 600 ml Balance 960 ml 480 ml -120 ml Intake Oral 960 ml 480 ml 480 ml Output Urine Total 600 ml # Voids 5 2 # Bowel Movements 1 2 0 Result Diagram: 12/13/17 1133 Imaging Last Impressions Knee X-Ray 12/11/17 0744 Signed Impressions: Service Date/Time: Monday, December 11, 2017 11:26 - CONCLUSION: Total knee prosthesis revision well-seated Riley Mendiola MD Objective Remarks In bed today. NV intact. No calf tenderness. Wound clean and dry. ROM 0-75 degrees. Assessment & Plan Ortho Post Op Day #: 4 Problem List: (1) Status post revision of total replacement of left knee ICD Codes: Z96.652 - Presence of left artificial knee joint Assessment and Plan Cont PT and daily wound care. Ultram for pain control. Rehab soon. Possible dc to home. Jason Mosqueda MD Dec 15, 2017 13:09
[2017-12-15 17:22] VITALS: O2SAT 93
== END 2017-12-15 17:40 | disposition home or self-care (01) | DRG 468 ==
LOC: HSDI 06:05 → N06A 17:04
PROVIDERS: ADMIT Surgery; ATTEND Surgery
PROC: 0SPD0JC Removal of Synthetic Substitute from Left Knee Joint, Patellar Surface, Open Approach (ICD-10-PCS; 2017-12-11)
PROC: 0SPW0JZ Removal of Synthetic Substitute from Left Knee Joint, Tibial Surface, Open Approach (ICD-10-PCS; 2017-12-11)
PROC: 0SUD09C Supplement Left Knee Joint with Liner, Patellar Surface, Open Approach (ICD-10-PCS; 2017-12-11)
PROC: 0SRW0J9 Replacement of Left Knee Joint, Tibial Surface with Synthetic Substitute, Cemented, Open Approach (ICD-10-PCS; principal; 2017-12-11 08:00)
DX: T84.063A Wear of articular bearing surface of internal prosthetic left knee joint, initial encounter (principal); I10 Essential (primary) hypertension; E11.9 Type 2 diabetes mellitus without complications; Y79.2 Prosthetic and other implants, materials and accessory orthopedic devices associated with adverse incidents; E78.5 Hyperlipidemia, unspecified; M19.90 Unspecified osteoarthritis, unspecified site; M24.662 Ankylosis, left knee; Z79.84 Long term (current) use of oral hypoglycemic drugs; Z87.891 Personal history of nicotine dependence
CPT/HCPCS: 73560; 80061; 80074; 82948; 83036; 85014; 85018; 86850; 86900; 86901; 87015; 87070; 87102; 87116; 87205; 87206; 94150; C1776; J0131; J0171; J0690; J1100; J2250; J2370; J2405; J2710; J3010; J3370; J7120; L1830